=== PATIENT | female | born 1985 | race Caucasian/White ===

== ENCOUNTER 2019-03-06 07:46 | Inpatient (IN) ==
[2019-03-06] MEDS ORDERED: OXYTOCIN 30 UNITS/500 ML BAG IV PRN ×2 (09:11→18:53)
[2019-03-06] MEDS ORDERED: miSOPROStol 25 MCG TAB PV ONE (09:27)
[2019-03-06 09:38] LABS: Hematocrit (blood only) 32.7 % (37-47); Hemoglobin 10.8 g/dL (12.0-16.0); Mean Corpuscular Hemoglobin 26.5 pg (25-34); Mean Corpuscular Volume 80.3 fL (80-100); Mean Platelet Volume 10.8 fL (7.4-10.4); Platelet Count 196 K/uL (130-400); RDW Coefficient of Variation 16.1 % (11.5-14.5); RDW Standard Deviation 47.2 fL (36.4-46.3); Red Blood Count 4.07 M/uL (4.2-5.4); White Blood Count 6.39 K/uL (4.8-10.8)
--- NOTE | 2019-03-06 10:04 | Obstetrical Progress Note ---
Date of Service March 06, 2019 Subjective Admit Note 34 F P1001 at 38 weeks admitted for induction of labor for irregular antibody. She has been followed by MFM at [facility] with MCA doppler studies and were all normal. Her GBS is negative. Cervix finger tip/50/- 3/vertex/firm.posterior/intact. EFW 8 lbs. Cytotec 25 mcg placed vaginally for cervical ripening. Anticipate normal delivery Results & Data Vital Signs (Past 12 Hours) Vital Signs Pulse BP 03/06/19 07:57 74 120/72
[2019-03-06] MEDS ORDERED: miSOPROStol 25 MCG TAB PV STA (14:03)
--- NOTE | 2019-03-06 14:24 | Obstetrical Progress Note ---
Date of Service March 06, 2019 Physical Exam Genitourinary: Manual OB Exam: + cervical dilation 1 cm, + cervical effacement 60% and + station -2 OB Exam Monitor Tracing: + external FHT monitor used, + external uterine monitor used, + category I and + normal FHT variability cytotec 25 mcg placed in vagina Results & Data Vital Signs (Past 12 Hours) Vital Signs Temp Pulse Resp BP 03/06/19 11:03 69 108/63 03/06/19 11:00 36.8 C 18 03/06/19 07:58 36.6 C 16 03/06/19 07:57 74 120/72
--- NOTE | 2019-03-06 18:55 | Obstetrical Progress Note ---
Date of Service March 06, 2019 Physical Exam Genitourinary: Manual OB Exam: + cervical dilation 1 cm and 2 cm, + cervical effacement 60% and + station -2 OB Exam Monitor Tracing: + external uterine monitor used, + category I and + normal FHT variability Will start oxytocin to augment contractions Results & Data Vital Signs (Past 12 Hours) Vital Signs Temp Pulse Resp BP 03/06/19 18:18 36.7 C 03/06/19 18:12 18 03/06/19 16:30 18 03/06/19 15:23 36.7 C 71 16 107/68 03/06/19 11:03 69 108/63 03/06/19 11:00 36.8 C 18 03/06/19 07:58 36.6 C 16 03/06/19 07:57 74 120/72
[2019-03-06] MEDS: LACTATED RINGER'S 1,000 ML IV PRN (18:57)
--- NOTE | 2019-03-06 23:24 | Obstetrical Progress Note ---
Date of Service March 06, 2019 Physical Exam Genitourinary: Manual OB Exam: + cervical dilation 2 cm, + cervical effacement 70%, + station -2 and + amniotic fluid clear OB Exam Monitor Tracing: + external FHT monitor used, + external uterine monitor used and + category I AROM with amni-hook clear fluid Results & Data Vital Signs (Past 12 Hours) Vital Signs Temp Pulse Resp BP 03/06/19 23:00 36.8 C 62 18 115/71 03/06/19 22:07 54 L 111/70 03/06/19 22:00 36.6 C 18 03/06/19 21:23 18 03/06/19 21:00 18 03/06/19 19:18 78 120/72 03/06/19 18:18 36.7 C 03/06/19 18:12 18 03/06/19 16:30 18 03/06/19 15:23 36.7 C 71 16 107/68
[2019-03-06] MEDS ORDERED: ePHEDrine sulfate 50 MG/ML AMP ONE (23:40)
[2019-03-06] MEDS ORDERED: BUPIVACAINE 0.25% 30 ML VIAL ONE (23:40)
[2019-03-06] MEDS ORDERED: fentaNYL citrate 100 MCG/2 ML VIAL ONE (23:40)
[2019-03-06] MEDS ORDERED: fentaNYL 2MCG/ML ROPIV 1.25MG/ML 100 ML BAG EPI ONE (23:41)
[2019-03-07] MEDS: LACTATED RINGER'S 1,000 ML IV PRN ×2 (00:29→02:14)
--- NOTE | 2019-03-07 00:58 | Anesthesiology Consultation ---
Date of Service March 07, 2019 Assessment & Plan Chart Review Chart Review: Acceptable Risk for Labor Epidural Consults Requested none History Height/Weight Height: 5 ft 7 in Weight: 85.729 kg Allergies Allergy/AdvReac Type Severity Reaction Status Date / Time lansoprazole AdvReac Dizziness Verified 03/06/19 08:38 Medications Home Medications Medication Instructions Recorded Confirmed Last Taken PNV [id number]#95-ferrous fumarate-FA 1 tab PO DAILY 03/06/19 03/06/19 03/06/19 05:45 [] buspirone 10 mg PO BID 03/06/19 03/06/19 03/06/19 07:00 ferrous sulfate [iron] 325 mg PO DAILY 03/06/19 03/06/19 03/05/19 18:00 Active Medications Generic Name Dose Route Start Last Admin Trade Name Freq PRN Reason Stop Dose Admin Lactated Ringer's 1,000 mls @ 125 mls/hr 03/06/19 09:11 03/07/19 00:29 Lr IV 03/08/19 09:10 999 mls/hr .Q8H PRN Administration L&D Protocol Protocol Oxytocin 30 units in 500 mls @ 4 mls/hr 03/06/19 18:53 03/06/19 23:09 Pitocin IV 03/08/19 18:52 0.24 units/hr .Q24H PRN 4 mls/hr Labor Induction/Augmentation Titration Protocol 0.24 UNITS/HR Past Medical History Medical History Anemia affecting Anxiety Rh alloimmunization, maternal, antepartum Past Surgical History Surgical History No history of previous surgery Social History Smoking Status: Former smoker Hx Alcohol Use: No Hx Substance Use: No substance use type: does not use Physical Exam Vital Signs Last Vital Signs Temp 36.5 C 03/07/19 00:45 Pulse 79 03/07/19 00:57 Resp 18 03/07/19 00:55 BP 109/65 03/07/19 00:57 Pulse Ox 96 03/07/19 00:57 Testing Laboratory Results 03/06/19 09:24 Blood Type B Negative 03/06/19 09:24 Antibody Screen POSITIVE A 03/06/19 09:24
[2019-03-07] MEDS ORDERED: ePHEDrine sulfate 50 MG/ML AMP IV PRN (01:00)
[2019-03-07] MEDS ORDERED: fentaNYL 2MCG/ML ROPIV 1.25MG/ML 100 ML BAG EPI PRN (01:00)
[2019-03-07] MEDS ORDERED: NALBUPHINE HCL INJ 10 MG/ML AMP IV PRN (01:00)
[2019-03-07] MEDS ORDERED: NALOXONE HCL 1 MG in SODIUM CHLORIDE 0.9% 1000ML 1,000 ML IV PRN (01:00)
[2019-03-07] MEDS ORDERED: NALOXONE HCL 0.4 MG/1 ML VIAL/CARP IV PRN (01:00)
[2019-03-07] MEDS ORDERED: DiphenhydrAMINE HCL 50 MG/ML VIAL IV PRN (01:00)
[2019-03-07] MEDS ORDERED: LIDOCAINE HCL 2% MPF (LOCAL) 5 ML VIAL INFIL ONE (01:02)
[2019-03-07] MEDS ORDERED: ACETAMINOPHEN 325 MG TAB PO STA (03:32)
[2019-03-07] MEDS ORDERED: ACETAMINOPHEN 325 MG TAB ONE (03:38)
--- NOTE | 2019-03-07 06:54 | Obstetrical Progress Note ---
Date of Service March 07, 2019 Physical Exam Genitourinary: Manual OB Exam: + cervical dilation 4 cm, + cervical effacement 90%, + station -2 and + amniotic fluid (light meconium) OB Exam Monitor Tracing: + external FHT monitor used and + category I Results & Data Vital Signs (Past 12 Hours) Vital Signs Temp Pulse Resp BP Pulse Ox 03/07/19 06:47 54 L 96 03/07/19 06:46 57 L 91/51 L 03/07/19 06:42 54 L 96 03/07/19 06:37 53 L 96 03/07/19 06:32 52 L 96 03/07/19 06:31 54 L 18 97/53 L 03/07/19 06:27 54 L 96 03/07/19 06:22 57 L 97 03/07/19 06:17 52 L 95 03/07/19 06:16 50 L 96/52 L 03/07/19 06:12 60 96 03/07/19 06:07 53 L 96 03/07/19 06:03 52 L 96/52 L 03/07/19 06:02 53 L 97 03/07/19 05:57 56 L 97 03/07/19 05:52 56 L 97 03/07/19 05:47 58 L 99/57 L 97 03/07/19 05:42 58 L 98 03/07/19 05:37 56 L 97 03/07/19 05:34 36.5 C 16 03/07/19 05:32 53 L 95 03/07/19 05:31 49 L 107/64 03/07/19 05:27 54 L 95 03/07/19 05:22 54 L 96 03/07/19 05:18 60 104/63 03/07/19 05:17 52 L 96 03/07/19 05:12 53 L 95 03/07/19 05:07 56 L 96 03/07/19 05:02 53 L 104/63 96 03/07/19 04:57 55 L 94 03/07/19 04:52 58 L 95 03/07/19 04:48 54 L 103/65 03/07/19 04:47 56 L 96 03/07/19 04:42 63 94 03/07/19 04:37 61 95 03/07/19 04:32 54 L 95 03/07/19 04:31 50 L 108/58 L 03/07/19 04:27 67 95 03/07/19 04:22 58 L 94 03/07/19 04:18 57 L 104/61 03/07/19 04:17 58 L 95 03/07/19 04:12 36.5 C 59 L 95 03/07/19 04:07 57 L 96 03/07/19 04:02 59 L 107/65 94 03/07/19 03:57 60 94 03/07/19 03:52 61 95 03/07/19 03:47 60 96 03/07/19 03:46 56 L 16 109/63 03/07/19 03:42 63 94 03/07/19 03:37 62 95 03/07/19 03:32 62 16 108/63 95 03/07/19 03:27 55 L 96 03/07/19 03:22 56 L 97 03/07/19 03:17 69 96 03/07/19 03:12 62 95 03/07/19 03:07 73 96 03/07/19 03:02 63 111/67 95 03/07/19 02:57 63 97 03/07/19 02:52 57 L 98 03/07/19 02:48 54 L 16 112/64 03/07/19 02:47 55 L 96 03/07/19 02:42 58 L 97 03/07/19 02:37 52 L 98 03/07/19 02:32 65 115/56 L 98 03/07/19 02:27 61 97 03/07/19 02:22 68 99 03/07/19 02:17 62 114/65 99 03/07/19 02:16 36.5 C 16 03/07/19 02:12 57 L 100 03/07/19 02:07 61 99 03/07/19 02:03 61 16 118/64 03/07/19 02:02 56 L 100 03/07/19 01:57 64 99 03/07/19 01:52 58 L 100 03/07/19 01:48 68 16 119/71 03/07/19 01:47 63 100 03/07/19 01:42 64 100 03/07/19 01:37 63 100 03/07/19 01:32 73 99/56 L 96 03/07/19 01:27 61 97 03/07/19 01:22 75 97 03/07/19 01:17 64 97 03/07/19 01:16 63 16 106/62 03/07/19 01:13 68 98/55 L 03/07/19 01:12 66 96 03/07/19 01:07 68 109/66 97 03/07/19 01:04 73 16 104/64 03/07/19 01:02 74 96 03/07/19 01:01 70 103/63 03/07/19 00:59 71 18 105/63 03/07/19 00:57 79 109/65 96 03/07/19 00:55 80 18 106/63 03/07/19 00:53 75 18 107/66 03/07/19 00:52 73 97 03/07/19 00:51 78 110/66 03/07/19 00:49 72 16 111/68 03/07/19 00:47 77 99 03/07/19 00:46 68 109/64 03/07/19 00:45 36.5 C 18 03/07/19 00:43 73 112/66 03/07/19 00:42 70 99 03/07/19 00:40 67 18 111/66 03/07/19 00:37 75 64 L 03/07/19 00:32 73 99 03/07/19 00:27 64 97 03/07/19 00:23 73 87 L 03/07/19 00:22 70 97 03/07/19 00:17 68 98 03/07/19 00:12 65 100 03/07/19 00:07 63 99 03/07/19 00:04 72 78 L 03/07/19 00:02 66 98 03/07/19 00:00 63 18 110/70 03/06/19 23:57 67 98 03/06/19 23:52 68 100 03/06/19 23:23 36.5 C 16 03/06/19 23:00 36.8 C 62 18 115/71 03/06/19 22:07 54 L 111/70 03/06/19 22:00 36.6 C 18 03/06/19 21:23 18 03/06/19 21:00 18 03/06/19 19:18 78 120/72
[2019-03-07] MEDS ORDERED: DIPHTHERIA/TETANUS/PERTUSSIS 0.5 ML SYR/VIAL IM ONE (10:45)
[2019-03-07] MEDS ORDERED: SUPERCREAM 0.870% 15 GM JAR EXT PRN (10:45)
[2019-03-07] MEDS ORDERED: BISACODYL 10 MG SUPP PR PRN (10:45)
[2019-03-07] MEDS ORDERED: MEASLES, MUMPS & RUBELLA VIRUS VIAL SQ ONE (10:45)
[2019-03-07] MEDS ORDERED: HYDROCORTISONE ACETATE 25 MG SUPP PR PRN (10:45)
[2019-03-07] MEDS ORDERED: OXYTOCIN 30 UNITS/500 ML BAG IV PRN (10:45)
--- NOTE | 2019-03-07 10:53 | Delivery Summary ---
Vaginal Delivery Summary Date of Service March 07, 2019 Vaginal Delivery Summary Delivery Note live male over intact perineum DAVID with delayed cord clamping with Apgars 8/9 and weight pending. Cord blood obtained and placenta delivered spontaneously and intact wit 3VC and velamentous insertion noted. First degree tear repaired with 1% Lidocaine and 3/0 Vicryl suture. EBL 200 ml. Final sponge, needle and instrument count are correct. Mom and baby stable.
[2019-03-07] MEDS: ACETAMINOPHEN 325 MG TAB PO PRN ×2 (12:20→20:23)
--- NOTE | 2019-03-07 12:54 | Anesthesia Procedure Note ---
Date of Service March 07, 2019 Anesthesia Post Epidural Note Vital Signs Vital Signs: Temp Pulse Resp BP Pulse Ox 37.2 C 65 20 108/61 96 03/07/19 09:16 03/07/19 12:46 03/07/19 09:16 03/07/19 12:46 03/07/19 10:17 Pain Intensity Lower Abdomen: Pain Intensity: 1 Notes Mental Status: alert / awake / arousable and participated in evaluation Nausea / Vomiting: adequately controlled Pain: adequately controlled Airway Patency, RR, SpO2: stable & adequate BP & HR: stable & adequate Hydration State: stable & adequate Neuraxial Anesthesia: was administered and sensory block is resolving Anesthetic Complications: no major complications apparent and Pt Satisfied with anesthetic care Epidural: Removed without complications and With tip intact Notes: Epidural site clean, dry and intact. No signs of edema, erythema or bruising at insertion site. Pt instructed to request anesthesia if she has residual lower extremity numbness or if she develops lower extremity pain or weakness, back pain or headache.
[2019-03-07] MEDS: IBUPROFEN 600 MG TAB PO PRN (18:54)
[2019-03-07] MEDS ORDERED: ONDANSETRON 4 MG TAB PO PRN (21:34)
[2019-03-07] MEDS: OXYCODONE/ACETAMINOPHEN 5mg/325mg TAB PO PRN (21:51)
[2019-03-08] MEDS: IBUPROFEN 600 MG TAB PO PRN ×4 (00:43→17:21)
[2019-03-08] MEDS: OXYCODONE/ACETAMINOPHEN 5mg/325mg TAB PO PRN (03:48)
[2019-03-08 06:26] LABS: Hemoglobin 9.8 g/dL (12.0-16.0); Mean Corpuscular Hemoglobin 26.3 pg (25-34); Mean Corpuscular Hgb Conc 32.7 g/dL (32-36); Mean Corpuscular Volume 80.4 fL (80-100); Mean Platelet Volume 10.2 fL (7.4-10.4); Platelet Count 179 K/uL (130-400); RDW Coefficient of Variation 16.4 % (11.5-14.5); RDW Standard Deviation 48.5 fL (36.4-46.3); Red Blood Count 3.73 M/uL (4.2-5.4); White Blood Count 7.34 K/uL (4.8-10.8)
[2019-03-08] MEDS: DOCUSATE SODIUM 100 MG CAP PO SCH ×2 (07:24→20:36)
[2019-03-08] MEDS: PRENATAL VITAMIN 1 TAB PO SCH (07:24)
[2019-03-08] MEDS ORDERED: NON-FORMULARY MEDICATION (Ferrous Sulfate [Iron] 325 MG) PO SCH (09:00)
[2019-03-08] MEDS ORDERED: NON-FORMULARY MEDICATION (Pnv Cmb#95-Ferrous Fumarate-Fa [Prenatal] 1 TAB) PO SCH (09:00)
[2019-03-08] MEDS: FERROUS SULFATE 325 MG TAB PO SCH (09:39)
[2019-03-08] MEDS: BENZOCAINE 20% AER SPR 82.5 GM CAN EXT PRN ×2 (09:53→13:13)
--- NOTE | 2019-03-08 10:48 | Obstetrical Progress Note ---
Date of Service March 08, 2019 Subjective Patient is seen and examined. She feels well, no complaints. Likes to be discharged today if her baby will be ready Ambulating without dizziness Voiding without difficulty Tolerating regular diet with out N&V Bleeding is minimal No fever/ chills/ CP/ SOB/ N&V/ Leg pain Breast feeding without problems Vital Signs Temp Pulse Pulse Resp BP BP Pulse Ox 03/08/19 07:45 36.6 C 70 18 103/69 98 03/08/19 04:25 36.8 C 65 18 99/63 L 03/07/19 23:20 36.8 C 71 18 111/72 03/07/19 19:00 36.6 C 61 16 111/72 03/07/19 15:45 37.0 C 76 16 111/74 03/07/19 14:10 36.8 C 67 18 119/75 03/07/19 13:16 76 106/65 03/07/19 13:01 73 107/62 03/07/19 12:46 65 108/61 03/07/19 12:31 73 107/64 03/07/19 12:16 81 106/62 03/07/19 12:01 71 102/66 03/07/19 11:46 81 111/64 03/07/19 11:31 73 101/60 03/07/19 11:16 69 104/64 03/07/19 11:01 101/64 Lab Results 03/06/19 03/06/19 03/08/19 Range/Units 09:24 09:24 06:05 WBC 6.39 7.34 (4.8-10.8) K/uL RBC 4.07 L 3.73 L (4.2-5.4) M/uL Hgb 10.8 L 9.8 L (12.0-16.0) g/dL Hct 32.7 L 30.0 L (37-47) % MCV 80.3 80.4 (80-100) fL MCH 26.5 26.3 (25-34) pg MCHC 33.0 32.7 (32-36) g/dL RDW Std Deviation 47.2 H 48.5 H (36.4-46.3) fL RDW Coeff of Cammie 16.1 H 16.4 H (11.5-14.5) % Plt Count 196 179 (130-400) K/uL MPV 10.8 H 10.2 (7.4-10.4) fL Blood Type B Negative Antibody Screen POSITIVE A Antibody Identification Anti-D PE: General: Alert, orientedx3, NAD Abd: soft, NT, fundus firm, below Umbilicus Perineum intact, Lochia rubra minimal Ext; NT, no edema AP: 34 yo s/p , ppd# 1 VSS Afebrile doing well Continue routine care All questions were answered Discussed when to call and visits D/C home if baby will be ready for d/c Results & Data Vital Signs (Past 12 Hours) Vital Signs Temp Pulse Resp BP Pulse Ox 03/08/19 07:45 36.6 C 70 18 103/69 98 03/08/19 04:25 36.8 C 65 18 99/63 L 03/07/19 23:20 36.8 C 71 18 111/72
[2019-03-08] MEDS ORDERED: BISACODYL 5 MG TABEC PO SCH (20:00)
[2019-03-09] MEDS: IBUPROFEN 600 MG TAB PO PRN (05:48)
--- NOTE | 2019-03-09 06:56 | Obstetrical Progress Note ---
Date of Service March 09, 2019 Subjective Patient is seen and examined. She feels well, no complaints. Ambulating without dizziness Voiding without difficulty Tolerating regular diet with out N&V Bleeding is minimal No fever/ chills/ CP/ SOB/ N&V/ Leg pain Breast feeding without problems Vital Signs Temp Pulse Resp BP Pulse Ox 03/08/19 23:35 36.8 C 73 16 106/69 98 03/08/19 19:35 37 C 76 16 106/71 96 03/08/19 16:32 36.8 C 73 16 109/69 03/08/19 07:45 36.6 C 70 18 103/69 98 Lab Results 03/06/19 03/06/19 03/08/19 Range/Units 09:24 09:24 06:05 WBC 6.39 7.34 (4.8-10.8) K/uL RBC 4.07 L 3.73 L (4.2-5.4) M/uL Hgb 10.8 L 9.8 L (12.0-16.0) g/dL Hct 32.7 L 30.0 L (37-47) % MCV 80.3 80.4 (80-100) fL MCH 26.5 26.3 (25-34) pg MCHC 33.0 32.7 (32-36) g/dL RDW Std Deviation 47.2 H 48.5 H (36.4-46.3) fL RDW Coeff of Cammie 16.1 H 16.4 H (11.5-14.5) % Plt Count 196 179 (130-400) K/uL MPV 10.8 H 10.2 (7.4-10.4) fL Blood Type B Negative Antibody Screen POSITIVE A Antibody Identification Anti-D PE: General: Alert, orientedx3, NAD Abd: soft, NT, fundus firm, below Umbilicus Perineum intact, Lochia rubra minimal Ext; NT, no edema AP: 34 yo s/p , ppd# 2 VSS Afebrile doing well Continue routine care All questions were answered D/C home , f/u in office Results & Data Vital Signs (Past 12 Hours) Vital Signs Temp Pulse Resp BP Pulse Ox 03/08/19 23:35 36.8 C 73 16 106/69 98 03/08/19 19:35 37 C 76 16 106/71 96
[2019-03-09 07:13] LABS: Hematocrit (blood only) 31.6 % (37-47); Hemoglobin 10.1 g/dL (12.0-16.0)
[2019-03-09] MEDS: PRENATAL VITAMIN 1 TAB PO SCH (08:32)
[2019-03-09] MEDS: DOCUSATE SODIUM 100 MG CAP PO SCH ×2 (08:32→08:35)
[2019-03-09] MEDS: FERROUS SULFATE 325 MG TAB PO SCH (08:33)
== END 2019-03-09 12:20 | disposition home or self-care (01) | DRG 807 ==
LOC: 4S1 07:46 → 4S2 03-07 14:10

== ENCOUNTER 2020-10-19 20:19 | Inpatient (IN) ==
--- NOTE | 2020-10-19 21:46 | Emergency Department Note ---
Impression & Plan Acute ITP, Thrombocytopenia, High serum chloride, Hematuria ED Provider Note NAME: HOWARD RODRIGUEZ AGE: 35 SEX: F : 1985 ARRIVES VIA: Walk-In INFORMANT: Patient ED PROVIDER(S): Fidencio Ho DO CHIEF COMPLAINT: Low platelets HPI: Patient is a 35-year-old female who presents to the ER referred in by PCP. She has been having easy bruising for the past 1-1/2 weeks. She admits to congestion that has been present for the past 4 weeks. Denies any headache or change in vision. No chest pain or shortness of breath. No nausea, vomiting, or diarrhea. No dysuria, urgency, or frequency. She has not been tested for Covid. She has no other complaints at this time. Platelets were 3 as an outpatient. ROS: See above HPI for pertinent positives & negatives. A total of 10 systems reviewed and were otherwise negative. PAST MEDICAL HISTORY:See Below PAST SURGICAL HISTORY:See Below FAMILY HISTORY:See Below SOCIAL HISTORY:See Below HOME MEDICATIONS:See Below ALLERGIES:See Below VITALS:See Below PHYSICAL EXAMINATION: GENERAL: Sitting up in bed, alert, well appearing, well nourished, no distress, non-toxic EYE EXAM: normal conjunctiva. OROPHARYNX: no exudate, no erythema, lips, buccal mucosa, and tongue normal and mucous membranes are moist NECK: supple, no nuchal rigidity, no adenopathy, non-tender LUNGS: Clear to auscultation. Normal chest wall mechanics HEART: no murmurs, S1 normal and S2 normal ABDOMEN: abdomen soft, non-tender, normo-active bowel sounds, no masses, no rebound or guarding. UPPER EXTREMITIES: upper extremities are grossly normal. LOWER EXTREMITIES: No pitting edema. NEURO EXAM: Normal sensorium, cranial nerves II-XII grossly intact, normal speech, no gross weakness of arms, no gross weakness of legs. MEDICAL DECISION MAKING: Patient is a 35-year-old female who presents the ER fourth petechiae easy bruising associated with low platelets referred in by PCP. IV was established blood work was obtained. Labs show a platelet count of 3000. BMP with a chloride of 109. Platelet fraction was elevated at 57. LDH was normal. Covid was negative. 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 Discussed with hematology oncology. They agreed to with 40 mg of Decadron orally. Patient was discussed with the hospitalist for further work-up and admission. Triage Nursing notes reviewed. Limited review of prior medical records performed Vital Signs: reviewed and remarkable for no significant abnormalities Differential diagnosis: Infection, dehydration, metabolic abnormality, hypo/hyperglycemia, electrolyte disturbance, anemia, hypoxia, cardiac sources, intracerebral event, toxicologic, neurologic, as well as other pathologies. ER treatment provided: See below Diagnostics interpreted by me: ECG: none Cardiac Monitoring: An order was placed for continuous cardiac monitoring. The monitor shows a rate of 80 with sinus rhythm. Laboratory studies: As stated above and show below. Imaging studies: See below Consultation(s): Discussed with Dr. Rodriguez from hematology oncology recommends 40 mg of Decadron and admission for observation Discussed with the hospitalist for further evaluation Procedures: none PDMP:reviewed and no issues Critical Care: None Past Med/Surg History Medical History (Updated 10/20/20 @ 00:11 by Fidencio Ho DO) Anxiety Depression GERD (gastroesophageal reflux disease) Surgical History History of wisdom tooth extraction Family History Grandmother (Paternal) Family history of diabetes mellitus Grandmother (Maternal) Family history of diabetes mellitus Family hx of colon cancer Aunt Family history of diabetes mellitus Aunt Family history of diabetes mellitus Other No family history of adverse response to anesthesia Social History Smoking Status: Never smoker Second Hand Exposure: No; Hx Alcohol Use: Yes Alcohol type: beer, wine and hard liquor Hx Substance Use: No Preferred Language: Sri [place]ankan Communication Ability: Effective 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 Beliefs That Will Affect Care: None marital status: Current Living Situation: Spouse and Family Current Living Situation Comment: Lives with and 2 kids Feels Safe at Home: Yes Assistive Devices: Glasses Allergies Allergies Allergy/AdvReac Type Severity Reaction Status Date / Time lansoprazole AdvReac Mild Dizziness Verified 10/19/20 21:29 Home Meds Home Medications Medication Instructions Recorded Confirmed buspirone 10 mg PO BID 03/06/19 10/19/20 multivitamin 1 tab PO QAM 09/22/19 10/19/20 sertraline 50 mg PO DAILY 10/19/20 10/19/20 Results & Data (ED) Vital Signs Vital Signs - 24 hr 10/19/20 20:21 10/19/20 22:10 10/19/20 22:20 Temperature 37.0 C Temperature Source Temporal Artery Scan Pulse Rate 86 71 73 Pulse Rate from SpO2 Sensor 72 74 Respiratory Rate 18 19 15 Respiratory Depth Normal Blood Pressure 136/88 115/77 Blood Pressure Mean 104 89 Pulse Oximetry 100 99 99 Oxygen Delivery Method Room Air Sepsis New/Unexplained Change in Mental Status N/A Sepsis Action Taken by Nursing No Action Required 10/19/20 22:30 10/19/20 22:31 10/19/20 22:40 Temperature Temperature Source Pulse Rate 72 70 73 Pulse Rate from SpO2 Sensor 72 72 72 Respiratory Rate 15 14 13 Respiratory Depth Blood Pressure 117/81 117/81 Blood Pressure Mean 93 93 Pulse Oximetry 99 99 98 Oxygen Delivery Method Sepsis New/Unexplained Change in Mental Status Sepsis Action Taken by Nursing 10/19/20 23:00 10/19/20 23:01 10/19/20 23:30 Temperature Temperature Source Pulse Rate 80 78 84 Pulse Rate from SpO2 Sensor 79 74 82 Respiratory Rate 15 14 22 Respiratory Depth Blood Pressure 111/71 110/76 Blood Pressure Mean 84 87 Pulse Oximetry 98 98 99 Oxygen Delivery Method Sepsis New/Unexplained Change in Mental Status Sepsis Action Taken by Nursing Laboratory Data Result diagrams: 10/19/20 21:33 10/19/20 21:33 Lab Results 10/19/20 10/19/20 10/19/20 Range/Units 21:33 21:33 21:33 WBC 7.34 (4.8-10.8) K/uL RBC 4.54 (4.2-5.4) M/uL Hgb 14.3 (12.0-16.0) g/dL Hct 40.5 (37-47) % MCV 89.2 (80-100) fL MCH 31.5 (25-34) pg MCHC 35.3 (32-36) g/dL RDW Std Deviation 43.4 (36.4-46.3) fL RDW Coeff of Cammie 13.3 (11.5-14.5) % Plt Count 3 L* (130-400) K/uL Immature Gran % (Auto) 0.1 % Neut % (Auto) 61.9 % Lymph % (Auto) 26.0 % [place] % (Auto) 10.4 % Eos % (Auto) 1.5 % Baso % (Auto) 0.1 % Neut # (Auto) 4.54 (1.4-6.5) K/uL Lymph # (Auto) 1.91 (1.2-3.4) K/uL [place] # (Auto) 0.76 H (0.11-0.59) K/uL Eos # (Auto) 0.11 (0-0.5) K/uL Baso # (Auto) 0.01 (0-0.2) K/uL Immature Gran # (Auto) 0.01 (0.00-0.02) K/uL Platelet Estimate SIGNIFIC DECREASED (Normal) Immature Plt Fraction 57.5 H (0.9-8.3) % PT 10.1 (9.0-12.0) Seconds INR 1.0 (0.9-1.1) Sodium 140 (136-145) mmol/L Potassium 4.0 (3.5-5.1) mmol/L Chloride 109 H (98-107) mmol/L Carbon Dioxide 26 (21-32) mmol/L Anion Gap 5.0 (3-11) BUN 14 (7-18) mg/dl Creatinine 0.81 (0.6-1.2) mg/dl Est Cr Clr Drug Dosing 106.4 ml/min Est GFR ( Amer) 109.8 Est GFR (Non-Af Amer) 94.8 BUN/Creatinine Ratio 16.6 (10-20) Glucose 103 H (70-99) mg/dl Calcium 9.2 (8.5-10.1) mg/dl Total Bilirubin 0.6 (0.2-1) mg/dl AST 13 L (15-37) U/L ALT 19 (12-78) U/L Alkaline Phosphatase 62 (45-117) U/L Lactate Dehydrogenase (84-246) U/L Total Protein 7.0 (6.4-8.2) gm/dl Albumin 4.1 (3.4-5.0) gm/dl Globulin 2.9 (2.5-4.0) gm/dl Albumin/Globulin Ratio 1.4 (0.9-2) Lipase 120 (73-393) U/L Urine Color Urine Appearance (Clear) Urine pH (4.5-7.5) Ur Specific [place] (1.000-1.030) Urine Protein (Negative) Urine Glucose (UA) (Negative) Urine Ketones (Negative) Urine Blood (Negative) Urine Nitrite (Negative) Urine Bilirubin (Negative) Urine Urobilinogen (Negative) Ur Leukocyte Esterase (Negative) Urine WBC (Auto) (0-5) /hpf Urine RBC (Auto) (0-4) /hpf U Hyaline Cast (Auto) (0-5) /lpf U Epithel Cells (Auto) (0-5) /lpf Urine Bacteria (Auto) (Negative) COVID-19 Eval Order SARS-CoV-2 (PCR) (Negative) Influenza Type A (PCR) (Neg) Influenza Type B (PCR) (Neg) RSV (RT-PCR) (Neg) 10/19/20 10/19/20 10/19/20 Range/Units 21:34 21:34 21:34 WBC (4.8-10.8) K/uL RBC (4.2-5.4) M/uL Hgb (12.0-16.0) g/dL Hct (37-47) % MCV (80-100) fL MCH (25-34) pg MCHC (32-36) g/dL RDW Std Deviation (36.4-46.3) fL RDW Coeff of Cammie (11.5-14.5) % Plt Count (130-400) K/uL Immature Gran % (Auto) % Neut % (Auto) % Lymph % (Auto) % [place] % (Auto) % Eos % (Auto) % Baso % (Auto) % Neut # (Auto) (1.4-6.5) K/uL Lymph # (Auto) (1.2-3.4) K/uL [place] # (Auto) (0.11-0.59) K/uL Eos # (Auto) (0-0.5) K/uL Baso # (Auto) (0-0.2) K/uL Immature Gran # (Auto) (0.00-0.02) K/uL Platelet Estimate (Normal) Immature Plt Fraction Cancelled (0.9-8.3) % PT (9.0-12.0) Seconds INR (0.9-1.1) Sodium (136-145) mmol/L Potassium (3.5-5.1) mmol/L Chloride (98-107) mmol/L Carbon Dioxide (21-32) mmol/L Anion Gap (3-11) BUN (7-18) mg/dl Creatinine (0.6-1.2) mg/dl Est Cr Clr Drug Dosing ml/min Est GFR ( Amer) Est GFR (Non-Af Amer) BUN/Creatinine Ratio (10-20) Glucose (70-99) mg/dl Calcium (8.5-10.1) mg/dl Total Bilirubin (0.2-1) mg/dl AST (15-37) U/L ALT (12-78) U/L Alkaline Phosphatase (45-117) U/L Lactate Dehydrogenase (84-246) U/L Total Protein (6.4-8.2) gm/dl Albumin (3.4-5.0) gm/dl Globulin (2.5-4.0) gm/dl Albumin/Globulin Ratio (0.9-2) Lipase (73-393) U/L Urine Color Urine Appearance (Clear) Urine pH (4.5-7.5) Ur Specific [place] (1.000-1.030) Urine Protein (Negative) Urine Glucose (UA) (Negative) Urine Ketones (Negative) Urine Blood (Negative) Urine Nitrite (Negative) Urine Bilirubin (Negative) Urine Urobilinogen (Negative) Ur Leukocyte Esterase (Negative) Urine WBC (Auto) (0-5) /hpf Urine RBC (Auto) (0-4) /hpf U Hyaline Cast (Auto) (0-5) /lpf U Epithel Cells (Auto) (0-5) /lpf Urine Bacteria (Auto) (Negative) COVID-19 Eval Order CovFluRsv at [facility] SARS-CoV-2 (PCR) NEGATIVE (Negative) Influenza Type A (PCR) Negative (Neg) Influenza Type B (PCR) Negative (Neg) RSV (RT-PCR) Negative (Neg) 10/19/20 10/19/20 Range/Units 21:34 22:07 WBC (4.8-10.8) K/uL RBC (4.2-5.4) M/uL Hgb (12.0-16.0) g/dL Hct (37-47) % MCV (80-100) fL MCH (25-34) pg MCHC (32-36) g/dL RDW Std Deviation (36.4-46.3) fL RDW Coeff of Cammie (11.5-14.5) % Plt Count (130-400) K/uL Immature Gran % (Auto) % Neut % (Auto) % Lymph % (Auto) % [place] % (Auto) % Eos % (Auto) % Baso % (Auto) % Neut # (Auto) (1.4-6.5) K/uL Lymph # (Auto) (1.2-3.4) K/uL [place] # (Auto) (0.11-0.59) K/uL Eos # (Auto) (0-0.5) K/uL Baso # (Auto) (0-0.2) K/uL Immature Gran # (Auto) (0.00-0.02) K/uL Platelet Estimate (Normal) Immature Plt Fraction (0.9-8.3) % PT (9.0-12.0) Seconds INR (0.9-1.1) Sodium (136-145) mmol/L Potassium (3.5-5.1) mmol/L Chloride (98-107) mmol/L Carbon Dioxide (21-32) mmol/L Anion Gap (3-11) BUN (7-18) mg/dl Creatinine (0.6-1.2) mg/dl Est Cr Clr Drug Dosing ml/min Est GFR ( Amer) Est GFR (Non-Af Amer) BUN/Creatinine Ratio (10-20) Glucose (70-99) mg/dl Calcium (8.5-10.1) mg/dl Total Bilirubin (0.2-1) mg/dl AST (15-37) U/L ALT (12-78) U/L Alkaline Phosphatase (45-117) U/L Lactate Dehydrogenase 190 (84-246) U/L Total Protein (6.4-8.2) gm/dl Albumin (3.4-5.0) gm/dl Globulin (2.5-4.0) gm/dl Albumin/Globulin Ratio (0.9-2) Lipase (73-393) U/L Urine Color Yellow Urine Appearance Clear (Clear) Urine pH 5.5 (4.5-7.5) Ur Specific [place] 1.011 (1.000-1.030) Urine Protein Negative (Negative) Urine Glucose (UA) Negative (Negative) Urine Ketones Trace H (Negative) Urine Blood 2+ H (Negative) Urine Nitrite Negative (Negative) Urine Bilirubin Negative (Negative) Urine Urobilinogen Negative (Negative) Ur Leukocyte Esterase Negative (Negative) Urine WBC (Auto) 0 (0-5) /hpf Urine RBC (Auto) 5-10 H (0-4) /hpf U Hyaline Cast (Auto) 0 (0-5) /lpf U Epithel Cells (Auto) 10-20 H (0-5) /lpf Urine Bacteria (Auto) Negative (Negative) COVID-19 Eval Order SARS-CoV-2 (PCR) (Negative) Influenza Type A (PCR) (Neg) Influenza Type B (PCR) (Neg) RSV (RT-PCR) (Neg) Administered Medications Discontinued Medications Dexamethasone (Dexamethasone 4 Mg Tab) 40 mg PO NOW STA Stop: 10/19/20 22:59 Last Admin: 10/19/20 23:28 Dose: 40 mg Documented by: [id number] Discharge Plan Visit Data Chief Complaint: Abnormal Labs/Diagnostic Testing Stated Complaint: Abnormal lab work ED Provider: Fidencio Ho Discharge Problem: Acute ITP, Thrombocytopenia, High serum chloride, Hematuria Forms Stand Alone Forms: [facility] [employer] [facility] Prescriptions Prescriptions: No Action multivitamin Tablet 1 tab PO QAM RF: 0 buspirone 10 mg Tablet 10 mg PO BID RF: 0 sertraline 50 mg tablet 50 mg PO DAILY RF: 0 Discharge Problem: Hematuria Qualifiers: Hematuria type: unspecified type Qualified Code(s): R31.9 - Hematuria, unspecified
[2020-10-19 22:09] LABS: Prothrombin Time 10.1 Seconds (9.0-12.0)
[2020-10-19 22:11] LABS: Albumin Level 4.1 gm/dl (3.4-5.0); BUN Creatinine Ratio 16.6 (10-20); Calcium 9.2 mg/dl (8.5-10.1); Creatinine Clr Calc Pharmacy 106.4 ml/min; Est GFR (African American) 109.8; Est GFR (Non-African American) 94.8
[2020-10-19 22:24] LABS: Albumin Globulin Ratio 1.4 (0.9-2); Bilirubin,Total 0.6 mg/dl (0.2-1); Globulin 2.9 gm/dl (2.5-4.0)
[2020-10-19 22:28] LABS: Basophils # (auto) 0.01 K/uL (0-0.2); Basophils % (auto) 0.1 %; Eosinophils # (auto) 0.11 K/uL (0-0.5); Eosinophils % (auto) 1.5 %; Hematocrit (blood only) 40.5 % (37-47); Hemoglobin 14.3 g/dL (12.0-16.0); Immature Granulocytes # (auto) 0.01 K/uL (0.00-0.02); Immature Granulocytes % (auto) 0.1 %; Lymphocytes # (auto) 1.91 K/uL (1.2-3.4); Mean Corpuscular Hemoglobin 31.5 pg (25-34); Mean Corpuscular Hgb Conc 35.3 g/dL (32-36); Mean Corpuscular Volume 89.2 fL (80-100); Monocytes # (auto) 0.76 K/uL (0.11-0.59); Monocytes % (auto) 10.4 %; Neutrophils # (auto) 4.54 K/uL (1.4-6.5); Neutrophils % (auto) 61.9 %; Platelet Count 3 K/uL (130-400); Platelet Estimate SIGNIFIC DECREASED (Normal); RDW Coefficient of Variation 13.3 % (11.5-14.5); RDW Standard Deviation 43.4 fL (36.4-46.3); Red Blood Count 4.54 M/uL (4.2-5.4); White Blood Count 7.34 K/uL (4.8-10.8)
[2020-10-19 22:31] LABS: Appearance Urine Clear (Clear); Bacteria Urine Automated Negative (Negative); Bilirubin Urine Negative (Negative); Blood Urine 2+ (Negative); Cast Urine Automated 0 /lpf (0-5); Color Urine Yellow; Glucose Urine UA Negative (Negative); Ketones Urine Trace (Negative); Leukocyte Esterase Urine Negative (Negative); Nitrite Urine Negative (Negative); Protein Urine Negative (Negative); Specific Gravity Urine 1.011 (1.000-1.030); Urobilinogen Urine Negative (Negative); WBC Urine Automated 0 /hpf (0-5); pH Urine 5.5 (4.5-7.5)
[2020-10-19 22:52] LABS: Influenza A virus by PCR Negative (Neg); Influenza B virus by PCR Negative (Neg); RSV by PCR Negative (Neg); SARS CoV2 RNA(COVID-19) InHosp NEGATIVE (Negative)
[2020-10-19] MEDS ORDERED: dexAMETHasone 4 MG TAB PO STA (22:58)
[2020-10-19 23:46] LABS: Immature Platelet Fraction 57.5 % (0.9-8.3)
[2020-10-20] MEDS ORDERED: NITROGLYCERIN SL 0.4 MG/TAB TAB SL PRN (00:56)
--- NOTE | 2020-10-20 01:54 | History and Physical Report ---
DATE OF ADMISSION: 10/20/2020 CHIEF COMPLAINT: Abnormal labs, thrombocytopenia. HISTORY OF PRESENT ILLNESS: A 35-year-old female with past medical history significant for celiac disease, depression, generalized anxiety disorder, who comes because of outpatient labs showing thrombocytopenia with platelets of 3. The repeat labs in the ER are also showing platelets of 3. The patient went to PCP because since last 1 week she is having easy bruising of the body for which the labs are ordered. The patient says since the last 1 month she is having stuffed nose, and congestion. Two weeks ago, she had Moderna COVID vaccine. Her COVID PCR is negative in the ER. Denies any other complaints. No headache, no blurred vision, no earache, no runny nose, no sore throat, no loss of sense of smell or taste. No cough, no chest pain, no shortness of breath, no nausea, no vomiting, no abdominal pain. Normal bowel and bladder movements. Denies any blood in the stools or black stools, denies any hematuria. Currently resting comfortable and hemodynamically stable. ALLERGIES: LANSOPRAZOLE PAST MEDICAL HISTORY: As mentioned above. PAST SURGICAL HISTORY: Dental surgery, EGDs, gastric emptying study. MEDICATIONS: On buspirone 10 mg p.o. b.i.d., Zoloft 50 mg p.o. daily, multivitamins with minerals 1 tablet daily. FAMILY HISTORY: Significant for paternal aunt has lung cancer, paternal grandmother had cancer, paternal grandmother has diabetes, mother has brain tumor and thyroid disorder, sister has hypothyroidism. SOCIAL HISTORY: . Former smoker. No alcohol use, no drug use. REVIEW OF SYSTEMS: As per HPI. Rest of the review of systems negative. PHYSICAL EXAMINATION: GENERAL: The patient is of moderate build, not in acute distress. VITAL SIGNS: Temperature 37, pulse 84, respiratory rate 22, blood pressure 110/76, oxygen 99% on room air. HEENT: Pupils equal, round, and reactive to light. Oral mucosa moist. NECK: No JVD. No neck masses. CARDIOVASCULAR: S1, S2 heard. Regular rate and rhythm. No murmur, no gallop. RESPIRATORY SYSTEM: Normal AP diameter. No accessory muscle use. No wheezing, no crackles. ABDOMEN: Soft, bowel sounds present, nontender. No distention. CENTRAL NERVOUS SYSTEM: Cranial nerves II-XII grossly intact, nonfocal. EXTREMITIES: No edema, no erythema. SKIN: Multiple bruises seen on the extremities. LABORATORY DATA: WBC 7.3, hemoglobin 14.3, hematocrit 40.5, platelets 3. PT 10.1, INR 1. Sodium 140, potassium 4, chloride 109, bicarbonate 26, BUN 14, creatinine 0.8, serum glucose 103, calcium 9.2, total bilirubin 0.6, AST 13, ALT 19, alkaline phosphatase 62. LDH 190. Lipase 120. Urinalysis negative, +2 blood. SARS-CoV-2 PCR negative. Influenza A and B PCR negative. RSV PCR negative. ASSESSMENT AND PLAN: A 35-year-old female who presents with thrombocytopenia. 1. Severe thrombocytopenia with a platelet count of 3: Easy bruising for last 1 week. She had COVID Moderna shot about 2 weeks ago. Since 1 month, she has some congested nose. 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 Hematology/oncology was consulted and notified. Recommended to do platelet transfusion and Decadron 40 mg daily for 4 days. Follow LDH and immature platelet fraction and peripheral smear. Closely monitor in the med [facility]. 2. Deep venous thrombosis prophylaxis: Sequential compression devices. DISPOSITION: Admit to [facility]. Expect to discharge home and follow with family doctor and hem/onc. KEVIN
[2020-10-20 08:07] LABS: Calcium 8.5 mg/dl (8.5-10.1); Creatinine Clr Calc Pharmacy 167.5 ml/min; Est GFR (African American) 145.4; Est GFR (Non-African American) 125.5; Magnesium 2.2 mg/dl (1.8-2.4); Potassium 3.6 mmol/L (3.5-5.1)
[2020-10-20 08:18] LABS: Hematocrit (blood only) 37.6 % (37-47); Hemoglobin 13.4 g/dL (12.0-16.0); Immature Granulocytes # (auto) 0.01 K/uL (0.00-0.02); Immature Granulocytes % (auto) 0.1 %; Immature Platelet Fraction 43.8 % (0.9-8.3); Lymphocytes # (auto) 0.21 K/uL (1.2-3.4); Lymphocytes % (auto) 2.6 %; Mean Corpuscular Hemoglobin 31.5 pg (25-34); Mean Corpuscular Hgb Conc 35.6 g/dL (32-36); Mean Corpuscular Volume 88.3 fL (80-100); Monocytes # (auto) 0.22 K/uL (0.11-0.59); Monocytes % (auto) 2.7 %; Neutrophils # (auto) 7.78 K/uL (1.4-6.5); Neutrophils % (auto) 94.6 %; Platelet Count 2 K/uL (130-400); Platelet Estimate SIGNIFIC DECREASED (Normal); RDW Coefficient of Variation 13.3 % (11.5-14.5); RDW Standard Deviation 42.4 fL (36.4-46.3); Red Blood Count 4.26 M/uL (4.2-5.4); Toxic Vacuolation 2+; White Blood Count 8.22 K/uL (4.8-10.8)
[2020-10-20] MEDS: busPIRone 5 MG TAB PO SCH ×2 (08:46→20:52)
[2020-10-20] MEDS: MULTIVITAMIN TAB PO SCH (08:46)
[2020-10-20] MEDS: PANTOprazole 40 MG TAB PO SCH (08:46)
[2020-10-20] MEDS: ACETAMINOPHEN 325 MG TAB PO PRN ×2 (08:49→20:52)
[2020-10-20 10:03] LABS: Hematocrit (blood only) 38.6 % (37-47); Hemoglobin 13.6 g/dL (12.0-16.0); Mean Corpuscular Hemoglobin 31.4 pg (25-34); Mean Corpuscular Hgb Conc 35.2 g/dL (32-36); Mean Corpuscular Volume 89.1 fL (80-100); Platelet Count 6 K/uL (130-400); Platelet Estimate SIGNIFIC DECREASED (Normal); RDW Coefficient of Variation 13.2 % (11.5-14.5); RDW Standard Deviation 42.8 fL (36.4-46.3); Red Blood Count 4.33 M/uL (4.2-5.4); White Blood Count 9.15 K/uL (4.8-10.8)
[2020-10-20] MEDS: dexAMETHasone 4 MG TAB PO SCH (10:24)
[2020-10-20 10:53] LABS: Folate (Folic Acid) > 20.00 ng/ml (>5.38); Vitamin B12 496 pg/ml (193-986)
[2020-10-20] MEDS: IMMUNE GLOBULIN(HUMAN) 10% 50 ML IV SCH (12:08)
[2020-10-20] MEDS: IMMUNE GLOBULIN(HUMAN) 10% 100 ML IV SCH ×6 (13:36→18:00)
--- NOTE | 2020-10-20 18:28 | Hospitalist Progress Note ---
Date of Service October 20, 2020 Assessment & Plan (1) Acute ITP: Patient is a 35 yr female who presents with thrombocytopenia after recent Covid vaccine Severe Thrombocytopenia Likely ITP due to COVID Vaccine Normal vitamin B12, folate levels Peripheral Smear: No morphologic abnormalities seen. Likely ITP Normal LDH Immature platelet fraction elevated Platelet Count: 3K>>6k S/P 2 units Platelets Continue Decadron Started on IVIG's Appreciate hematology Dr. Rodriguez input Monitor platelets Continue PPI for GI prophylaxis Mood disorder Continue home medications DVT Px: SCDs CODE STATUS Full code DISPOSITION: Expected discharge home when medically stable. Admission and Anticipated Discharge Date Admission Date: October 20, 2020 Subjective Patient is seen and examined at bedside States having multiple bruises Denies any bleeding issues Also denies chest pain, dyspnea, dizziness, nausea, abdominal pain Discussed with hematology Dr. Rodriguez over the phone Review of Systems Review of Systems: All systems reviewed & are unremarkable except as noted in HPI & below Physical Exam Physical Exam: Physical Exam: Vitals signs as noted above General Appearance:Moderately built and nourished, no apparent distress Head: normocephalic, Atraumatic Eyes: normal inspection, EOMI Neck: supple, Trachea midline Respiratory/Chest: Normal breath sounds, CTA Cardiovascular: S1, S2, No murmur Abdomen/GI:Soft, Non tender, Bowel sounds present Extremities/Musculoskelatal:normal inspection, no edema Neurologic/Psych:AAOX3, grossly no focal neurological deficits Skin: normal color, warm, +Multiple bruises Results & Data Results & Data ([facility]) Vital Signs (Past 12 Hours) Vital Signs Temp Pulse Pulse Resp BP BP Pulse Ox 10/20/20 18:04 37 C 76 20 108/69 95 10/20/20 17:35 37.1 C 76 18 101/63 95 10/20/20 17:02 37.2 C 85 18 111/75 93 10/20/20 16:25 36.5 C 72 18 105/67 94 10/20/20 15:56 37.0 C 71 18 105/66 91 10/20/20 15:30 36.7 C 71 18 108/70 93 10/20/20 14:29 36.8 C 78 18 104/66 93 10/20/20 14:05 37.1 C 73 18 104/65 95 10/20/20 13:00 36.8 C 85 18 100/64 95 10/20/20 12:54 37.1 C 90 18 104/72 97 10/20/20 12:43 36.7 C 89 16 110/67 96 10/20/20 12:15 36.6 C 89 20 109/71 96 10/20/20 10:58 36.7 C 83 18 106/69 95 10/20/20 10:00 76 10/20/20 07:05 36.9 C 77 16 101/65 95 Laboratory Results Short CBC 10/19/20 10/20/20 10/20/20 Range/Units 21:33 07:35 09:09 WBC 7.34 8.22 9.15 (4.8-10.8) K/uL Hgb 14.3 13.4 13.6 (12.0-16.0) g/dL Hct 40.5 37.6 38.6 (37-47) % Plt Count 3 L* 2 L* 6 L* D (130-400) K/uL BMP 10/19/20 10/20/20 21:33 07:35 Sodium 140 139 Potassium 4.0 3.6 Chloride 109 H 111 H Carbon Dioxide 26 20 L BUN 14 7 D Creatinine 0.81 0.51 L D Glucose 103 H 129 H Calcium 9.2 8.5 Liver Function 10/19/20 Range/Units 21:33 Total Bilirubin 0.6 (0.2-1) mg/dl AST 13 L (15-37) U/L ALT 19 (12-78) U/L Alkaline Phosphatase 62 (45-117) U/L Albumin 4.1 (3.4-5.0) gm/dl Urine 10/19/20 Range/Units 22:07 Urine Color Yellow Urine Appearance Clear (Clear) Urine pH 5.5 (4.5-7.5) Ur Specific [place] 1.011 (1.000-1.030) Urine Protein Negative (Negative) Urine Glucose (UA) Negative (Negative)
[2020-10-20] MEDS ORDERED: dexAMETHasone 4 MG TAB PO SCH (21:00)
[2020-10-21] MEDS: busPIRone 5 MG TAB PO SCH ×2 (08:25→20:54)
[2020-10-21] MEDS: PANTOprazole 40 MG TAB PO SCH (08:25)
[2020-10-21] MEDS: MULTIVITAMIN TAB PO SCH (08:25)
[2020-10-21] MEDS: dexAMETHasone 4 MG TAB PO SCH (08:26)
[2020-10-21 08:39] LABS: Hematocrit (blood only) 36.3 % (37-47); Hemoglobin 12.5 g/dL (12.0-16.0); Mean Corpuscular Hemoglobin 30.9 pg (25-34); Mean Corpuscular Hgb Conc 34.4 g/dL (32-36); Mean Corpuscular Volume 89.6 fL (80-100); Platelet Count 2 K/uL (130-400); RDW Coefficient of Variation 13.4 % (11.5-14.5); RDW Standard Deviation 44.1 fL (36.4-46.3); Red Blood Count 4.05 M/uL (4.2-5.4); White Blood Count 13.07 K/uL (4.8-10.8)
[2020-10-21 08:40] LABS: Platelet Estimate SIGNIFIC DECREASED (Normal)
[2020-10-21 08:54] LABS: Calcium 8.4 mg/dl (8.5-10.1); Creatinine Clr Calc Pharmacy 140.6 ml/min; Est GFR (African American) 137.1; Est GFR (Non-African American) 118.3; Potassium 3.6 mmol/L (3.5-5.1)
[2020-10-21] MEDS: IMMUNE GLOBULIN(HUMAN) 10% 50 ML IV SCH (14:20)
[2020-10-21] MEDS: IMMUNE GLOBULIN(HUMAN) 10% 100 ML IV SCH ×6 (15:14→19:31)
--- NOTE | 2020-10-21 15:41 | Hospitalist Progress Note ---
Date of Service October 21, 2020 Assessment & Plan (1) Acute ITP: Patient is a 35 yr female who presents with thrombocytopenia after recent Covid vaccine Severe Thrombocytopenia Likely ITP due to COVID Vaccine Normal vitamin B12, folate levels Peripheral Smear: No morphologic abnormalities seen. Likely ITP Normal LDH Immature platelet fraction elevated Platelet Count: 3K>>6k> 2k S/P 2 units Platelets Continue Decadron Day 3/4 Continue IVIG's Day 2/[address] Rodriguez input Monitor platelets Continue PPI for GI prophylaxis Plan to give 1 unit of platelets today Mood disorder Continue home medications DVT Px: SCDs CODE STATUS Full code DISPOSITION: Expected discharge home when medically stable. Admission and Anticipated Discharge Date Admission Date: October 20, 2020 Subjective Patient is seen and examined at bedside Offers no complaints Denies any bleeding issues Platelet count remains low Discussed with hematology today Denies chest pain, dyspnea, dizziness, nausea, abdominal pain Review of Systems Review of Systems: All systems reviewed & are unremarkable except as noted in HPI & below Physical Exam Physical Exam: Physical Exam: Vitals signs as noted above General Appearance:Moderately built and nourished, no apparent distress Head: normocephalic, Atraumatic Eyes: normal inspection, EOMI Neck: supple, Trachea midline Respiratory/Chest: Normal breath sounds, CTA Cardiovascular: S1, S2, No murmur Abdomen/GI:Soft, Non tender, Bowel sounds present Extremities/Musculoskelatal:normal inspection, no edema Neurologic/Psych:AAOX3, grossly no focal neurological deficits Skin: normal color, warm, +Multiple bruises Results & Data Results & [facility] ([facility]) Vital Signs (Past 12 Hours) Vital Signs Temp Pulse Pulse Resp BP BP Pulse Ox 10/21/20 14:47 36.7 C 64 16 109/66 95 10/21/20 14:25 37 C 73 20 104/66 95 10/21/20 12:20 36.8 C 70 18 107/68 97 10/21/20 12:05 36.8 C 75 18 110/72 97 10/21/20 11:51 36.6 C 69 16 105/68 95 10/21/20 11:50 36.7 C 75 18 112/74 10/21/20 06:52 36.8 C 64 18 95/54 L 95 Laboratory Results Short CBC 10/21/20 Range/Units 07:42 WBC 13.07 H (4.8-10.8) K/uL Hgb 12.5 (12.0-16.0) g/dL Hct 36.3 L (37-47) % Plt Count 2 L* D (130-400) K/uL BMP 10/21/20 07:42 Sodium 140 Potassium 3.6 Chloride 112 H Carbon Dioxide 23 BUN 10 Creatinine 0.61 Glucose 117 H Calcium 8.4 L
[2020-10-21] MEDS: SERTRALINE HCL 50 MG TABLET PO SCH (20:54)
[2020-10-22 08:06] LABS: Hematocrit (blood only) 34.1 % (37-47); Mean Corpuscular Hemoglobin 31.4 pg (25-34); Mean Corpuscular Hgb Conc 35.2 g/dL (32-36); Mean Corpuscular Volume 89.3 fL (80-100); Platelet Count 11 K/uL (130-400); Platelet Estimate SIGNIFIC DECREASED (Normal); RDW Standard Deviation 45.7 fL (36.4-46.3); Red Blood Count 3.82 M/uL (4.2-5.4); White Blood Count 9.42 K/uL (4.8-10.8)
[2020-10-22 08:11] LABS: BUN Creatinine Ratio 17.5 (10-20); Calcium 8.3 mg/dl (8.5-10.1); Creatinine Clr Calc Pharmacy 130.4 ml/min; Est GFR (African American) 133.6; Est GFR (Non-African American) 115.3; Potassium 3.5 mmol/L (3.5-5.1)
[2020-10-22] MEDS: PANTOprazole 40 MG TAB PO SCH (09:31)
[2020-10-22] MEDS: busPIRone 5 MG TAB PO SCH ×2 (09:31→20:13)
[2020-10-22] MEDS: SERTRALINE HCL 50 MG TABLET PO SCH (09:32)
[2020-10-22] MEDS: MULTIVITAMIN TAB PO SCH (09:33)
[2020-10-22] MEDS: dexAMETHasone 4 MG TAB PO SCH (09:33)
--- NOTE | 2020-10-22 18:54 | Hospitalist Progress Note ---
Date of Service October 22, 2020 Assessment & Plan (1) Acute ITP: Patient is a 35 yr female who presents with thrombocytopenia after recent Covid vaccine Severe Thrombocytopenia Likely ITP due to COVID Vaccine Normal vitamin B12, folate levels Peripheral Smear: No morphologic abnormalities seen. Likely ITP Normal LDH Immature platelet fraction elevated Platelet Count: 3K>>6k> 2k>11k S/P 3 units Platelets Continue Decadron Day 4/4 Continue IVIG's Day 2/[address] Rodriguez input Monitor platelets Continue PPI for GI prophylaxis Recheck CBC tomorrow Mood disorder Continue home medications DVT Px: SCDs CODE STATUS Full code DISPOSITION: Expected discharge home when medically stable. Admission and Anticipated Discharge Date Admission Date: October 20, 2020 Subjective Patient is seen and examined at bedside Bruising slowly improving No new complaints Denies any bleeding issues Platelet count slowly improving Discussed with hematology today Denies chest pain, dyspnea, dizziness, nausea, abdominal pain Review of Systems Review of Systems: All systems reviewed & are unremarkable except as noted in HPI & below Physical Exam Physical Exam: Physical Exam: Vitals signs as noted above General Appearance:Moderately built and nourished, no apparent distress Head: normocephalic, Atraumatic Eyes: normal inspection, EOMI Neck: supple, Trachea midline Respiratory/Chest: Normal breath sounds, CTA Cardiovascular: S1, S2, No murmur Abdomen/GI:Soft, Non tender, Bowel sounds present Extremities/Musculoskelatal:normal inspection, no edema Neurologic/Psych:AAOX3, grossly no focal neurological deficits Skin: normal color, warm, +Multiple bruises Results & Data Results & Data ([facility]) Vital Signs (Past 12 Hours) Vital Signs Temp Pulse Pulse Resp BP Pulse Ox 10/22/20 16:23 36.7 C 62 16 108/69 96 10/22/20 14:20 76 10/22/20 07:49 36.7 C 54 L 20 100/63 93 Laboratory Results Short CBC 10/22/20 Range/Units 07:10 WBC 9.42 (4.8-10.8) K/uL Hgb 12.0 (12.0-16.0) g/dL Hct 34.1 L (37-47) % Plt Count 11 L* D (130-400) K/uL BMP 10/22/20 07:10 Sodium 140 Potassium 3.5 Chloride 111 H Carbon Dioxide 23 BUN 12 Creatinine 0.66 Glucose 100 H Calcium 8.3 L
[2020-10-23 07:39] LABS: Hematocrit (blood only) 36.9 % (37-47); Hemoglobin 12.7 g/dL (12.0-16.0); Mean Corpuscular Hemoglobin 30.9 pg (25-34); Mean Corpuscular Hgb Conc 34.4 g/dL (32-36); Mean Corpuscular Volume 89.8 fL (80-100); Platelet Count 14 K/uL (130-400); Platelet Estimate SIGNIFIC DECREASED (Normal); RDW Coefficient of Variation 13.7 % (11.5-14.5); RDW Standard Deviation 45.1 fL (36.4-46.3); Red Blood Count 4.11 M/uL (4.2-5.4); White Blood Count 7.22 K/uL (4.8-10.8)
[2020-10-23] MEDS: PANTOprazole 40 MG TAB PO SCH (07:52)
[2020-10-23] MEDS: busPIRone 5 MG TAB PO SCH (07:52)
[2020-10-23] MEDS: dexAMETHasone 4 MG TAB PO SCH (07:52)
[2020-10-23] MEDS: SERTRALINE HCL 50 MG TABLET PO SCH (07:53)
[2020-10-23] MEDS: MULTIVITAMIN TAB PO SCH (07:53)
--- NOTE | 2020-10-23 11:14 | Hospitalist Progress Note ---
Date of Service October 23, 2020 Assessment & Plan (1) Acute ITP: Patient is a 35 yr female who presents with thrombocytopenia after recent Covid vaccine Severe Thrombocytopenia Likely ITP due to COVID Vaccine Normal vitamin B12, folate levels Peripheral Smear: No morphologic abnormalities seen. Likely ITP Normal LDH Immature platelet fraction elevated Platelet Count: 3K>>6k> 2k>11k>14k S/P 3 units Platelets Continue Decadron Day 4/4 Continue IVIG's Day 2/ Appreciate hematology Dr. Rodriguez input Monitor platelets Continue PPI for GI prophylaxis Needs follow up with hematology as outpatient Mood disorder Continue home medications DVT Px: SCDs CODE STATUS Full code DISPOSITION: Expected discharge home when medically stable. Admission and Anticipated Discharge Date Admission Date: October 20, 2020 Subjective Patient is seen and examined at bedside No new Bruises Denies any bleeding issues Platelet count slowly improving to 14k Discussed with today Denies chest pain, dyspnea, dizziness, nausea, abdominal pain Review of Systems Review of Systems: All systems reviewed & are unremarkable except as noted in HPI & below Physical Exam Physical Exam: Physical Exam: Vitals signs as noted above General Appearance:Moderately built and nourished, no apparent distress Head: normocephalic, Atraumatic Eyes: normal inspection, EOMI Neck: supple, Trachea midline Respiratory/Chest: Normal breath sounds, CTA Cardiovascular: S1, S2, No murmur Abdomen/GI:Soft, Non tender, Bowel sounds present Extremities/Musculoskelatal:normal inspection, no edema Neurologic/Psych:AAOX3, grossly no focal neurological deficits Skin: normal color, warm, +Multiple bruises Results & Data Results & Data ([facility]) Vital Signs (Past 12 Hours) Vital Signs Temp Pulse Pulse Resp BP Pulse Ox 10/23/20 07:28 36.8 C 51 L 20 109/67 93 10/23/20 07:00 45 L 10/23/20 04:00 36.7 C 56 L 18 103/68 93 10/22/20 23:22 37 C 48 L 18 103/63 93 Laboratory Results Short CBC 10/23/20 Range/Units 06:43 WBC 7.22 (4.8-10.8) K/uL Hgb 12.7 (12.0-16.0) g/dL Hct 36.9 L (37-47) % Plt Count 14 L* (130-400) K/uL
--- NOTE | 2020-10-23 11:20 | Discharge Summary ---
Date of Service October 23, 2020 Admission HPI Per Admitting Provider CHIEF COMPLAINT: Abnormal labs, thrombocytopenia. HISTORY OF PRESENT ILLNESS: A 35-year-old female with past medical history significant for celiac disease, depression, generalized anxiety disorder, who comes because of outpatient labs showing thrombocytopenia with platelets of 3. The repeat labs in the ER are also showing platelets of 3. The patient went to PCP because since last 1 week she is having easy bruising of the body for which the labs are ordered. The patient says since the last 1 month she is having stuffed nose, and congestion. Two weeks ago, she had Moderna COVID vaccine. Her COVID PCR is negative in the ER. Denies any other complaints. No headache, no blurred vision, no earache, no runny nose, no sore throat, no loss of sense of smell or taste. No cough, no chest pain, no shortness of breath, no nausea, no vomiting, no abdominal pain. Normal bowel and bladder movements. Denies any blood in the stools or black stools, denies any hematuria. Currently resting comfortable and hemodynamically stable. Admission Exam Per Admitting Provider PHYSICAL EXAMINATION: GENERAL: The patient is of moderate build, not in acute distress. VITAL SIGNS: Temperature 37, pulse 84, respiratory rate 22, blood pressure 110/76, oxygen 99% on room air. HEENT: Pupils equal, round, and reactive to light. Oral mucosa moist. NECK: No JVD. No neck masses. CARDIOVASCULAR: S1, S2 heard. Regular rate and rhythm. No murmur, no gallop. RESPIRATORY SYSTEM: Normal AP diameter. No accessory muscle use. No wheezing, no crackles. ABDOMEN: Soft, bowel sounds present, nontender. No distention. CENTRAL NERVOUS SYSTEM: Cranial nerves II-XII grossly intact, nonfocal. EXTREMITIES: No edema, no erythema. SKIN: Multiple bruises seen on the extremities. 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 Likely ITP Normal LDH Immature platelet fraction elevated Platelet Count: 3K>>6k> 2k>11k>14k S/P 3 units Platelets Continue Decadron Day 10/17 Continue IVIG's Day / Appreciate hematology Dr. Rodriguez input Monitor platelets Continue PPI for GI prophylaxis Needs follow up with hematology as outpatient Mood disorder Continue home medications DVT Px: SCDs CODE STATUS Full code DISPOSITION: Expected discharge home when medically stable. Total Time Total Time Spent Total Time Spent (In Minutes): 39 minutes Total Time Includes: Examination of the Patient, Discharge Planning, Medication Reconciliation, Communication With Other Providers and Other Discharge Plan Discharge Items Patient Disposition: Home - Self-Care Reason For Visit: ABNORMAL LABS Discharge Diagnosis: Severe Thrombocytopenia Activity: Per Instructions section Exercise/Sports: Wait until after follow-up appointment Non-emergency contact: Primary Care Provider and Specialist Call non-emergency contact if: you have any medication questions, your symptoms worsen, your pain is not controlled, your pain is concerning for you and you have a fever Follow-up/Referrals: Thanh Diaz MD [Primary Care Provider] - Diet: Regular Addtl Attending Provider Instructions: Follow-up with your primary care physician Dr. Diaz in 1 week Follow-up with your crop quantitative geneticist Dr. Saul Rodriguez on 10/25/20 as recommended Seek immediate medical attention if your symptoms reoccur or worsen Pending Studies at Discharge: No Stand-Alone Forms: [employer], Smoking Cessation Medications and DC Order Prescriptions: Continued multivitamin Tablet 1 tab PO QAM RF: 0 buspirone 10 mg Tablet 10 mg PO BID RF: 0 sertraline 50 mg tablet 50 mg PO DAILY RF: 0 Discharge Orders: Discharge Order (Routine); Ordered 10/23/20 Ordered By: Juan Miguel Alegre Admission Data Admit Date/Time: 10/20/20 00:00 Attending Provider: Juan Miguel Alegre Admit Provider: Dk Mcmillan Primary Care Provider: Thanh Diaz Other Providers: Dk Mcmillan Other Interventions: Discharge Summary Assessment (RN) Last Done: 10/23/20 11:35
== END 2020-10-23 11:59 | disposition home or self-care (01) | DRG 813 ==
LOC: ED 20:19 → 2W 10-20